=== PATIENT | female | born 1955 | race Caucasian/White ===

== ENCOUNTER 2019-02-14 16:37 | Emergency (ER) | payer OTHER ==
[~2019-02-14] VITALS: Ht 165.1 cm; Wt 52.2 kg
[2019-02-14 16:55] LABS: URINE BILIRUBIN NEGATIVE (Negative); URINE BLOOD 3+ (Negative); URINE CLARITY CLEAR; URINE COLOR YELLOW; URINE GLUCOSE-RANDOM* NEGATIVE (Negative); URINE KETONES NEGATIVE (Negative); URINE NITRITE-REFLEX NEGATIVE (Negative); URINE PROTEIN (DIPSTICK) NEGATIVE (Negative)
[2019-02-14 16:57] LABS: URINE LEUKOCYTES-REFLEX 1+ (Negative)
[2019-02-14 17:07] LABS: CASTS None Seen /LPF (None Seen); CRYSTALS None Seen /LPF (None Seen); SQUAMOUS 0-3 Few /LPF (0-3); URINE RBC 3-10 Few /HPF (0-2); URINE WBC-REFLEX 6-15 Few /HPF (0-5)
[2019-02-14 17:08] LABS: BACTERIA-REFLEX 1-9 Few /HPF (None Seen); YEAST-REFLEX Present (None Seen)
[2019-02-14] MEDS ORDERED: XANAX 0.5 MG0.5 MG PO (17:22)
[2019-02-14] MEDS ORDERED: OMEPRAZOLE40 MG PO (17:22)
[2019-02-14] MEDS ORDERED: DEPAKOTE500 MG PO (17:22)
[2019-02-14] MEDS ORDERED: WELLBUTRIN XL300 MG PO (17:22)
[2019-02-14] MEDS ORDERED: ACYCLOVIR 400400 MG PO (17:22)
[2019-02-14] MEDS ORDERED: TRAZODONE HCL50 MG PO (17:22)
[2019-02-14 17:23] LABS: ABSOLUTE NEUTROPHILS 6.8 thou/uL (1.4-8.2); BASOPHILS 0.6 % (0.0-2.0); HEMATOCRIT 34.9 % (37.0-47.0); HEMOGLOBIN 11.7 gm/dL (12.0-15.0); LYMPHOCYTES 19.8 % (24.0-44.0); MCH 31.2 pg (26.0-34.0); MCHC 33.5 g/dL (28.0-37.0); MCV 93.1 fL (80.0-100.0); PLATELET COUNT 466 thou/uL (150-400); POLYS 66.6 % (36.0-66.0); RBC 3.75 mil/uL (4.20-5.00); RDW 14.7 % (10.5-14.5); WBC 10.3 thou/uL (4.0-11.0)
[2019-02-14 17:34] LABS: CALCIUM 9.2 mg/dL (8.5-10.1); CREATININE 0.8 mg/dL (0.6-1.0); POTASSIUM 3.7 mmol/L (3.5-5.1)
[2019-02-14 17:55] LABS: ALBUMIN 3.3 g/dL (3.4-5.0); TOTAL BILIRUBIN 0.3 mg/dL (<0.1-1.0); TOTAL PROTEIN 7.1 g/dL (6.4-8.2)
[2019-02-14] MEDS ORDERED: ZOFRAN ODT4 MG PO (19:01)
[2019-02-14] MEDS ORDERED: CEFDINIR300 MG PO (19:01)
[2019-02-14] MEDS ORDERED: FLAGYL500 M1 PO (19:01)
[2019-02-14 19:35] VITALS: BP 124/65
--- NOTE | 2019-02-15 08:20 | EKG ---
[place] [address] [facility] [place] [address] ELECTROCARDIOGRAM REPORT Name: HA HIDALGO [id number] Admission: 02/14/19 Attend Phys: Discharge: 02/14/19 Date of : 51 Report #: [id number] THIS REPORT FOR: //name// [facility] ED Test Date: 2019-02-14 Test Time: 17:02:33 Pat Name: HA HIDALGO Department: Room: Gender: F Analytical Scientist: carissa : 1955 Requested By: Chago Nance Order Number: [id number] MD: Ministerio Osuna Measurements Intervals [place] Rate: 76 P: 37 MD: 116 QRS: 36 QRSD: 92 T: -16 QT: 372 QTc: 419 Interpretive Statements Sinus rhythm Borderline short MD interval Borderline T abnormalities, inferior leads No previous ECG available for comparison Electronically Signed On 02-15-2019 8:20:03 CDT by Ministerio Osuna [email or web address] <ELECTRONICALLY SIGNED> By: Ministerio Osuna MD, [facility] 02/15/19 0820 170 1702 Ministerio Osuna MD, FACC /EPI
== END 2019-02-14 19:42 | disposition home or self-care (01) ==
LOC: ER 16:37
PROVIDERS: Emergency Medicine
DX: K57.92 Diverticulitis of intestine, part unspecified, without perforation or abscess without bleeding (principal); Z85.118 Personal history of other malignant neoplasm of bronchus and lung; Z90.49 Acquired absence of other specified parts of digestive tract; Z90.81 Acquired absence of spleen

== ENCOUNTER 2019-04-29 16:58 | Inpatient (IN) | payer OTHER ==
[~2019-04-29] VITALS: Ht 165.1 cm; Wt 53.1 kg
--- NOTE | ~2019-04-29 | H ---
[facility] [place] [address] HISTORY AND PHYSICAL Name: HA HIDALGO Room #: 435-P ADM IN M.R.#: [id number] Admission: 04/29/19 Attend Phys: Sage Lopez MD Discharge: Date of : 51 Report #: [id number] THIS REPORT FOR: //name// CC: Sage Lopez DATE OF SERVICE: 04/29/2019 CHIEF COMPLAINT: Severe epigastric abdominal pain. HISTORY OF PRESENT ILLNESS: The patient was seen in my office this afternoon with severe abdominal pain. She states that she had a sudden onset at about noon and has been unremitting since that time. She has not vomited, but she has felt nauseated. She does have discomfort if she hits bump in the road while driving with her car. She experienced similar abdominal pain on 04/02/2019 and went to the Emergency Room at [facility] on 04/16/2019, at which time, she was told that she had a sigmoid colitis and diverticulitis. She was given antibiotics. Several weeks later, she experienced fecal incontinence and severe abdominal cramping and was found to have her stools were positive for C. diff, she was treated with antibiotics after that. She underwent a colonoscopy by Dr. Margarito Fairchild on 04/27/2019, which was normal. Two polyps were completely removed by cold snare, and returned tubular adenomas on the pathology. Diverticulosis was seen without evidence of diverticulitis, abscess or bleeding. She has had an appendectomy and a splenectomy. On 05/28/2018, she had a right lower lobe removed for stage 1 lung cancer at [facility]. She was given an antibiotic for sinus infection on 11/30/2018. She has a distant history of having had a "broken heart" or Takotsubo cardiomyopathy. She has depression and anxiety, treated by her psychiatrist, Dr. Hunt. CURRENT MEDICATIONS: Alprazolam 0.5 mg daily in the morning, divalproex sodium 500 mg in the evening, trazodone 50 mg half tablet at bedtime, omeprazole 40 mg 1 in the morning and acyclovir on a daily basis. Her psychiatrist is Dr. Hunt. She also takes bupropion XL 300 mg once daily. ALLERGIES: None known. OBJECTIVE/PHYSICAL EXAMINATION: VITAL SIGNS: Blood pressure is 165/97, heart rate is 86 and regular. The oropharynx is mildly dehydrated. HEENT: Otherwise, unremarkable. NECK: Negative. LUNGS: Clear. [address] [address] HISTORY AND PHYSICAL Name: HA HIDALGO Room #: [facility] IN [facility].#: [id number] Admission: 04/29/19 Attend Phys: Sage Lopez MD Discharge: Date of : 51 Report #: [id number] CARDIOVASCULAR: The heart tones are normal and regular. There is a vertical midline scar from her splenectomy and appendectomy. There is epigastric tenderness present. There is no organomegaly or masses. ABDOMEN: Soft to palpation. Bowel sounds are high pitched characteristic of an obstruction. LABORATORY DATA: CT scan of the abdomen shows the stomach to be distended as well as the duodenum with an abrupt transition behind the superior mesenteric artery. Gas is present in the distal small bowel and gas and stool are present in the colon. ASSESSMENT: 1. Acute onset of abdominal pain with physical findings suggestive of small-bowel obstruction. 2. 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 3. History of Takotsubo cardiomyopathy. 5. Appendectomy, hysterectomy, splenectomy. 6. Mildly dehydrated appearing on physical examination. PLAN: The patient is admitted and made n.p.o. and placed on IV fluids. Her nausea has stopped, therefore, an NG tube is not necessary at this time. By: 0017 0033 Sage Lopez MD /nt
[~2019-04-29 16:58] MED LIST: ACYCLOVIR 400400 MG PO; CEFDINIR300 MG PO; DEPAKOTE500 MG PO; FLAGYL500 M1 PO; OMEPRAZOLE40 MG PO; TRAZODONE HCL50 MG PO; WELLBUTRIN XL300 MG PO; XANAX 0.5 MG0.5 MG PO; ZOFRAN ODT4 MG PO
[2019-04-29 17:07] VITALS: BP 137/56
[2019-04-29 17:47] LABS: ABSOLUTE NEUTROPHILS 8.7 thou/uL (1.4-8.2); BASOPHILS 0.4 % (0.0-2.0); HEMOGLOBIN 12.7 gm/dL (12.0-15.0); LYMPHOCYTES 11.8 % (24.0-44.0); MCH 31.3 pg (26.0-34.0); MCHC 32.6 g/dL (28.0-37.0); MCV 96.1 fL (80.0-100.0); MONOCYTES 5.1 % (1.0-8.0); POLYS 81.7 % (36.0-66.0); RBC 4.06 mil/uL (4.20-5.00); RDW 14.8 % (10.5-14.5); WBC 10.7 thou/uL (4.0-11.0)
[2019-04-29 17:59] LABS: CALCIUM 9.1 mg/dL (8.5-10.1); CREATININE 0.6 mg/dL (0.6-1.0); POTASSIUM 4.2 mmol/L (3.5-5.1)
[2019-04-29 18:04] LABS: ALBUMIN 3.4 g/dL (3.4-5.0); TOTAL BILIRUBIN 0.3 mg/dL (<0.1-1.0); TOTAL PROTEIN 7.2 g/dL (6.4-8.2)
[2019-04-29 18:17] LABS: PLATELET COUNT 415 thou/uL (150-400)
[2019-04-29 20:19] VITALS: BP 131/76
[2019-04-29 21:10] VITALS: BP 144/82
[2019-04-29 21:25] VITALS: BP 148/79
--- NOTE | 2019-04-30 01:52 | NUR ---
ASSUMED PT CARE AT 2117 ON 04/29/19. PT IS ALERT AND ORIENTED X 4. APPROPRIATE APPEARANCE. I EDUCATED PT ON FALL PRECAUTION, BED SYSTEM AND CALL LIGHT. PT ASKED QUESTIONS ABOUT CARE AND WHAT TO EXPECT. PT WAS PROVIDED MOUTH SWABS AND WATER. AFTER SPEAKING WITH DR. LOZADA, THE PT IS NPO UNTIL SEEING THE SURGEON. FLUIDS RUNNING AT 100 MLS/HR. PT IS NOW RESTING IN HER ROOM. WILL CONITNUE TO MONITOR.
[2019-04-30 05:40] LABS: ABSOLUTE NEUTROPHILS 3.2 thou/uL (1.4-8.2); EOSINOPHILS 2.3 % (0.0-3.0); HEMATOCRIT 35.1 % (37.0-47.0); HEMOGLOBIN 11.5 gm/dL (12.0-15.0); LYMPHOCYTES 43.9 % (24.0-44.0); MCH 31.2 pg (26.0-34.0); MCHC 32.9 g/dL (28.0-37.0); MONOCYTES 9.6 % (1.0-8.0); PLATELET COUNT 418 thou/uL (150-400); POLYS 43.2 % (36.0-66.0); RBC 3.69 mil/uL (4.20-5.00); RDW 14.4 % (10.5-14.5); WBC 7.5 thou/uL (4.0-11.0)
[2019-04-30 05:53] LABS: CREATININE 0.6 mg/dL (0.6-1.0); POTASSIUM 3.3 mmol/L (3.5-5.1)
[2019-04-30 06:00] VITALS: BP 142/78
--- NOTE | 2019-04-30 07:32 | NUR ---
PT WAS ADMITTED TO THE UNIT IN A STABLE CONDITION.PT STATED THAT SHE HAD CDIFF X2 WEEKS AGO,PT PUT ON ISOLATION PENDING CLEARANCE FROM DR LOZADA.PT NOTIFIED AND WAS OKAY WITH IT.DR NOLAND(GEN SURGERY) CONSULTED,AM NURSE TO CALL THE CONSULT.REPORT TO AM NURSE.
[2019-04-30 08:24] VITALS: BP 120/79
--- NOTE | 2019-04-30 10:00 | NUR ---
ASSUMED CARE OF PT AT 0700. PT COMPLAINS OF HEADACHE WITH A NUMERIC SCORE OF 3, DENIES WANTING ANY PAIN MEDICATION OF RIGHT NOW. PER DOCTOR, PT CAN STAY ON CONTACT PRECAUTIONS IF IT IS HOSPITAL PROTOCOL, BUT IF NOT, CONTACT PRECAUTIONS CAN BE DISCONTINUED. PT HAD C DIFF LESS THAN TWO MONTHS AGO. CALLED IN CONSULT. IV IN R FOREARM IS DRY AND INTACT. PT DENIES NAUSEA AND ABDOMINAL PAIN. CALL LIGHT IS WITHIN REACH. WILL CONTINUE TO MONITOR PT.
[2019-04-30 10:12] LABS: ABSOLUTE NEUTROPHILS 4.1 thou/uL (1.4-8.2); HEMOGLOBIN 12.9 gm/dL (12.0-15.0); LYMPHOCYTES 28.2 % (24.0-44.0); MCHC 32.3 g/dL (28.0-37.0); MONOCYTES 10.7 % (1.0-8.0); PLATELET COUNT 457 thou/uL (150-400); POLYS 58.1 % (36.0-66.0); RBC 4.17 mil/uL (4.20-5.00); RDW 15.1 % (10.5-14.5)
[2019-04-30 10:18] LABS: CALCIUM 8.9 mg/dL (8.5-10.1); CREATININE 0.6 mg/dL (0.6-1.0); POTASSIUM 3.3 mmol/L (3.5-5.1)
[2019-04-30 10:24] LABS: ALBUMIN 3.5 g/dL (3.4-5.0); TOTAL BILIRUBIN 0.4 mg/dL (<0.1-1.0); TOTAL PROTEIN 7.1 g/dL (6.4-8.2)
[2019-04-30 18:09] VITALS: BP 143/74
[2019-04-30 20:00] VITALS: BP 154/82
[2019-05-01 04:05] VITALS: BP 136/74
--- NOTE | 2019-05-01 05:29 | NUR ---
ASSUMED PT CARE ON 04/30/19. PT IS PLEASANT UPON ENTERING THE ROOM. PT HAS TWO SISTERS IN THE ROOM. PT HAS NO COMPLAINTS OF PAIN. PT DOES COMPLAIN OF NAUSEA AND VOMITING. PT GOT UP TO TO BRUSH TEETH AND GET READY FOR BED. I PROVIDED A BATH CAP FOR HER. PT HAS CONTINUOUS FLUIDS RUNNING IN THE RIGHT FOREARM. PT IS UP AD PARMINDER. PT IS CURRENTLY ON ISOLATION FOR C-DIFF. WILL CONTINUE TO MONITOR PT.
[2019-05-01 05:39] LABS: CALCIUM 9.2 mg/dL (8.5-10.1); CREATININE 0.5 mg/dL (0.6-1.0); POTASSIUM 3.7 mmol/L (3.5-5.1)
--- NOTE | 2019-05-01 07:44 | NUR ---
PT GOT A SHOWER THIS SHIFT PER HER REQUEST. HAIR WASHED, PAIN AND NAUSEA MED ADMINISTERED PER PT'S REQUEST.REPORT TO AM NURSE.
[2019-05-01 08:49] VITALS: BP 133/85
[2019-05-01] MEDS ORDERED: DIFLUCAN150 MG PO (10:45)
--- NOTE | 2019-05-01 13:57 | NUR ---
ASSUMED CARE OF PT AT 0700. DOCTOR ORDERED CT SCAN AND PT DRANK ORAL CONTRAST. PTS HOME MEDICATIONS WERE REVIEWED BY RX AND MEDS WERE RECONCILED, SEE EMAR. PT HAS BEEN NAUSEA THROUGHOUT THE DAY, PT GIVEN MEDICATION. DIET IS LIQUID, AFTER CT SCAN, IF PT IS CLEAR, PT CAN ADVANCE TOLERATED PER NOTES. R FOREARM IV DRY AND INTACT. PT IS NOT A FALL RISK, HOWEVER, FALL PRECAUTIONS ARE STILL IN PLACE, BUT PT IS AMBULATORY. BED IN LOWEST POSITION AND CALL LIGHT IS WITHIN REACH. WILL CONTINUE TO MONITOR THE PT.
[2019-05-01 16:31] VITALS: BP 147/82
[2019-05-01 20:02] VITALS: BP 132/70
--- NOTE | 2019-05-02 05:30 | NUR ---
PATIENT ALERT AND ORIENTED X4. UP AD PARMINDER. REMAINS IN ISO FOR C-DIFF. NPO SINCE MN FOR EGD. DENIES PAIN. SLEPT OFF AND ON DURING NIGHT.
[2019-05-02 07:15] VITALS: BP 143/68
[2019-05-02 07:23] LABS: CALCIUM 9.2 mg/dL (8.5-10.1); CREATININE 0.6 mg/dL (0.6-1.0)
[2019-05-02 15:58] VITALS: BP 133/74
--- NOTE | 2019-05-02 16:12 | NUR ---
PT ADMITTED RELATED TO SMALL BOWEL OBSTRUCTION / SMA SYNDROME. CM REVIEWED CHART AND SPOKE WITH CARE TEAM. CM MET WITH PT AT BEDSIDE THIS DAY. PT IS A&O X4. CM ROLE INTRODUCED. PT INDICATED SHE LIVES ALONE IN A ONE BEDROOM APARTMENT WITH NO STEPS TO ENTER AND NO STEPS INSIDE. 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 PT INDICATED NO DME OR HH HX. PT INDICATED SHE PLANS TO RETURN HOME ONCE MEDICALLY STABLE. CM TO FOLLOW INDICATED WITH DC PLANNING.
--- NOTE | 2019-05-02 17:04 | NUR ---
PT ASSESSED AT START OF SHIFT. PT WENT FOR EGD THIS AM WHICH WAS NORMAL. HAS EATING REGULAR DIET W/O C/O PAIN. DISCUSSED W/ PT TO TAKE HER MIRALAX FOR HER CONSTPAION.
[2019-05-02 19:50] VITALS: BP 138/69
--- NOTE | 2019-05-03 05:03 | NUR ---
ASSUMED CARE OF PATIENT AT SHIFT CHANGE. ASSESSMENT CHARTED. MEDICATION GIVEN PER MAR. PATIENT IS A&OX4, VSS, DENIES PAIN. PATIENT IS AMBULATORY WITH NO ISSUES. PATIENT STARTED A REGULAR DIET TODAY, ATE CRACKERS AND PB AND DID NOT C/O OF DISCOMFORT OR PAIN. PATIENT HAD A SMALL BM EARLIER TODAY. PER DR. LE, PATIENT IS TO D/C BACK HOME IF BREAKFAST IS TOLERATED WELL. WILL CONTINUE TO MONITOR AND FOLLOW POC
[2019-05-03 07:35] VITALS: BP 145/85
[2019-05-03 11:34] VITALS: BP 145/85
--- NOTE | 2019-05-03 12:28 | NUR ---
ASSUMED CARE OF PT AT 0700. PT IS AMBULATORY AND NOT A FALL RISK. PTS HOME MEDICATIONS HAVE BEEN RETURNED TO PT PRIOR TO DISCHARGE FROM PHARMACY. PT RECEIVED CAT SCAN RECORDS AND DISCS PER DOCTOR PRIOR TO DISCHARGE. IV REMOVED. PT TOLERATED BREAKFAST WELL WITH NO COMPLAINTS OF PAIN. PT WILL DISCHARGE TO HOME. DISCHARGE PAPERWORK SIGNED AND PT WILL BE DISCHARGED.
[2019-05-03 12:38] VITALS: BP 145/85
--- NOTE | 2019-05-03 13:37 | HC ---
[facility] [place] [address] CONSULTATION Name: HA HIDALGO Room #: 435-P ADM IN M.R.#: [id number] Admission: 04/29/19 Attend Phys: Sage Lopez MD Discharge: Date of : 51 Report #: [id number] THIS REPORT FOR: //name// CC: Dr. David Lopez MD DATE OF SERVICE: 05/02/2019 HISTORY OF PRESENT ILLNESS: The patient is a 63-year-old female who began having mid epigastric and left upper quadrant abdominal pain, fairly severe in nature, on the day of admission, on 04/29/2019. She denies any nausea or vomiting. No fevers or chills. She does have a history of gastroesophageal reflux disease, takes Prilosec for many years on a daily basis. She also takes aspirin. She denies any dysphagia or odynophagia. The patient had episode of abdominal pain in March of this year, went to the Emergency Room, and a CT scan of the abdomen and pelvis at that time showed either a sigmoid colitis or diverticulitis. She was treated with antibiotics. She actually improved, but then began having diarrhea; later was diagnosed with C. diff and then treated for this as well. She then underwent a colonoscopy by my partner, Dr. Margarito Fairchild, on 04/27/2019, which was essentially negative. Two small polyps were removed, diverticulosis was noted; no evidence of diverticulitis at that time. She had a repeat CT scan on admission here on 04/29, which showed distention of the stomach as well as the duodenum with abrupt transition behind the superior mesenteric artery, narrowing distance, could indicate SMA syndrome; however, there was gas distal in the small bowel; otherwise negative. She then underwent a repeat CT on the with contrast and this showed no acute abnormalities. There was a large amount of retained stool in the colon without evidence of obstruction. Plan is for possible EGD today. She denies any further abdominal pain. No noted chest pain or shortness of breath. PAST MEDICAL AND SURGICAL HISTORY: History of diverticulitis, previous history of appendectomy, splenectomy. She has a previous history of lung cancer, status post resection; history of Takotsubo cardiomyopathy, history of depression, anxiety, gastroesophageal reflux disease, recent history of C. diff. MEDICATIONS ON ADMISSION: Alprazolam, divalproex, trazodone, omeprazole 40 mg, acyclovir, bupropion. ALLERGIES: No known drug allergies. REVIEW OF SYSTEMS: As per HPI. SOCIAL HISTORY: She denies any tobacco use. She reports occasional alcohol use. [address] [address] CONSULTATION Name: HA HIDALGO Room #: [address] [place] [address] IN M.R.#: [id number] Admission: 04/29/19 Attend Phys: Sage Lopez MD Discharge: Date of : 51 Report #: [id number] FAMILY HISTORY: Negative for colon cancer. PHYSICAL EXAMINATION: VITAL SIGNS: Temperature is 98.5, pulse 70, blood pressure is 143/68, respiratory rate is 17. GENERAL: She is alert and oriented x 3, in no acute distress. HEENT: Sclerae nonicteric. Oropharynx clear. NECK: Supple without lymphadenopathy. CARDIOVASCULAR: Regular rate and rhythm. CHEST: Clear to auscultation bilaterally. ABDOMEN: Soft, nontender, nondistended, normoactive bowel sounds. EXTREMITIES: No cyanosis, clubbing or edema. LABORATORY DATA: Sodium 142, potassium 4.0, chloride 105, bicarb 29, BUN 10, creatinine 0.6, glucose 82, AST is 10. Lipase 115. Total bili 0.4, alk phos 73, ALT is 11, albumin 3.5. WBC is 7.0, hemoglobin 12.9, platelet count is 457. UA was essentially negative. ASSESSMENT: Abdominal pain, etiology is unclear. Initial CT showed dilated stomach and part of the small bowel, brought up the possibility of superior mesenteric artery syndrome; however, repeat CT with contrast had improved. The patient at this time denies any abdominal pain. PLAN: Upper endoscopy today. Continue PPI therapy. I will make further recommendations after endoscopy. Thank you for allowing me to participate in her care. <ELECTRONICALLY SIGNED> By: Shay Dorman MD 05/03/19 1337 1141 [id number] Shay Dorman MD /nt
--- NOTE | 2019-05-03 13:37 | P ---
[facility] [place] [address] PROCEDURE REPORT Name: HA HIDALGO Room #: 435-P [facility] IN M.R.#: [id number] Admission: 04/29/19 Attend Phys: Nirali Lopez MD Discharge: Date of : 51 Report #: [id number] THIS REPORT FOR: //name// CC: NIRALI Lopez DATE OF SERVICE: 05/02/2019 PROCEDURE PERFORMED: Upper endoscopy with biopsies. HISTORY OF PRESENT ILLNESS: The patient is a 63-year-old female with abdominal pain is primarily midepigastric left upper quadrant, has now resolved. CT scan of the abdomen and pelvis were performed on admission. It did show a distended stomach as well as part of the duodenum also brought up the possibility of an SMA syndrome, but a repeat CT with contrast does not show these changes. The patient does have a history of gastroesophageal reflux disease and takes Prilosec on a regular basis, also takes aspirin. Plan is for upper endoscopy. DESCRIPTION OF PROCEDURE: The risks and benefits of the procedure were explained to the patient, those risks including but not limited to bleeding, perforation and the risk of sedation. She understood these risks and gave informed consent. Sedation was given using propofol per anesthesia. Next, using a standard Olympus upper endoscope, the scope was placed in the patient's mouth and advanced under direct vision through the esophagus, stomach and into the second portion of the duodenum. The esophagus was normal throughout. The GE junction was normal. Overall, the gastric mucosa was normal. Biopsies were obtained to rule out H. pylori. The pylorus was normal and patent. The duodenal bulb, first and second portion were all normal. Biopsies were obtained to rule out the possibility of celiac sprue. There was no evidence of distention of the stomach or duodenum on exam today. The scope was then withdrawn and the procedure terminated. The patient tolerated the procedure well. IMPRESSION: Normal upper endoscopy. RECOMMENDATIONS: 1. Await biopsy results. 2. Continue PPI therapy. 3. Recommend regular diet today. If the patient tolerates this, would consider discharge to home. Etiology of recent abdominal pain is unclear. [facility] [address] [place] [address] PROCEDURE REPORT Name: HA HIDALGO Room #: 435-P [facility] IN M.R.#: [id number] Admission: 04/29/19 Attend Phys: Nirali Lopez MD Discharge: Date of : 51 Report #: [id number] Thank you for allowing me to participate in her care. <ELECTRONICALLY SIGNED> By: Shay Dorman MD 05/03/19 1337 1143 [id number] Shay Dorman MD /nt
--- NOTE | 2019-05-03 17:06 | PATH ---
[facility] [place] [address] [address] [place] [address] PATHOLOGY RPT PROCEDURE Name: HELENA HIDALGO Room #: 435-P DIS IN M.R.#: [id number] Admission: 04/29/19 Date of : 51 Discharge: 05/03/19 Report #: [id number] Path Case #: [id number] [facility] Accession Number: [id number] . 01 Material submitted: . PART A: duodenum - BX DUODENUM PART B: stomach - BX GASTRIC . 01 Clinical history: . Abdominal pain . 02 Diagnosis: A. Small bowel mucosa, duodenum, rule out sprue, endoscopic biopsy: - No diagnostic abnormalities present. - Negative for villous blunting or increase in intraepithelial lymphocytes. . B. Gastric mucosa, rule out H. pylori, endoscopic biopsy: - Mild reactive gastropathy. - Negative for intestinal metaplasia or atrophy. - Negative for Helicobacter pylori (properly controlled immunohistochemical stain performed). (IUV:pit; 05/03/2019) QTP 05/03/2019 1156 Local . 02 Electronically signed: . Colette Bueno MD, Pathologist NPI- [id number] . 01 Gross description: . A. Received in formalin labeled "Helena Hidalgo, BX duodenum, rule out sprue," are 7 segments of hudson soft tissue measuring 1.5 x 0.9 x 0.2 cm in aggregate dimensions and ranging from 0.1 to 0.3 cm in maximum dimension. The specimen is submitted entirely in cassette A1. . B. Received in formalin labeled "Helena Hidalgo, BX gastric, rule out H. pylori," are 3 segments of hudson soft tissue measuring 0.8 x 0.6 x 0.2 cm in aggregate dimensions and ranging from 0.4 to 0.6 cm in maximum dimension. The specimen is submitted entirely in cassette B1. (TSD; 05/02/2019) TOB/TOB 05/02/2019 2210 Local . 02 Pathologist provided ICD-10: K31.9, R10.9 . 02 CPT . 431253, 374636, [id number] [place] [address] PATHOLOGY RPT PROCEDURE Name: HELENA HIDALGO Room #: 435-P DIS IN M.R.#: [id number] Admission: 04/29/19 Date of : 51 Discharge: 05/03/19 Report #: [id number] Path Case #: [id number] Specimen Comment: A courtesy copy of this report has been sent to [phone] Specimen Comment: [phone] Specimen Comment: Report sent to / DR LOZADA Performed at: [address], [place] [id number] MD Heber Hung MD Phone: [phone] Performed at: [address] [id number] MD Colette Bueno MD Phone: [phone]
== END 2019-05-03 14:00 | disposition home or self-care (01) | DRG 394 ==
LOC: ER 16:58 → EROBS 19:49 → 4S 19:49 → ENTRNSPT 05-03 14:19 → EDTRNSPTSTS 05-03 15:50
PROVIDERS: Emergency Medicine; ADMIT Internal Medicine
PROC: 0DB98ZX Excision of Duodenum, Via Natural or Artificial Opening Endoscopic, Diagnostic (ICD-10-PCS; principal; 2019-05-02)
PROC: 0DB68ZX Excision of Stomach, Via Natural or Artificial Opening Endoscopic, Diagnostic (ICD-10-PCS; principal; 2019-05-02)
DX: K55.1 Chronic vascular disorders of intestine (principal); I42.9 Cardiomyopathy, unspecified; F32.9 Major depressive disorder, single episode, unspecified; R31.9 Hematuria, unspecified; K21.9 Gastro-esophageal reflux disease without esophagitis; E86.0 Dehydration; K57.30 Diverticulosis of large intestine without perforation or abscess without bleeding; F41.9 Anxiety disorder, unspecified; Z90.710 Acquired absence of both cervix and uterus; Z90.49 Acquired absence of other specified parts of digestive tract; Z85.118 Personal history of other malignant neoplasm of bronchus and lung; Z79.899 Other long term (current) drug therapy; Z79.82 Long term (current) use of aspirin
CPT/HCPCS: 10195; 62110; 62900; 70005